=== PATIENT | female | born 1980 | race Two or more races ===

== ENCOUNTER 2019-02-01 08:00 | Outpatient (CLI) | payer OTHER ==
[2019-02-01 12:34] LABS: BASOPHILS # (AUTO) 0.1 10^3/uL (0.0-0.1); BASOPHILS % (AUTO) 0.8 %; EOSINOPHILS # (AUTO) 0.2 10^3/uL (0.0-0.7); EOSINOPHILS % (AUTO) 3.4 %; HGB - HEMOGLOBIN 12.6 g/dL (12.0-16.0); LYMPHOCYTES # (AUTO) 1.7 10^3/uL (1.5-3.5); LYMPHOCYTES % (AUTO) 27.9 %; MEAN CORPUSCULAR HEMOGLOBIN 29.4 pg (27.0-31.0); MEAN CORPUSCULAR HGB CONC 31.8 g/dL (32.0-36.0); MEAN CORPUSCULAR VOLUME 92.3 fL (81.0-99.0); MEAN PLATELET VOLUME 10.2 fL (7.9-10.8); MONOCYTES # (AUTO) 0.6 10^3/uL (0.0-1.0); MONOCYTES % (AUTO) 9.8 %; NEUTROPHILS # (AUTO) 3.6 10^3/uL (1.5-6.6); NEUTROPHILS % (AUTO) 57.8 %; PLT - PLATELET COUNT 260 10^3/uL (130-450); RED BLOOD COUNT 4.29 10^6/uL (4.20-5.40); RED CELL DISTRIBUTION WIDTH 12.7 % (12.0-15.0); WHITE BLOOD COUNT 6.1 x10^3/uL (4.8-10.8)
[2019-02-01 13:01] LABS: ALBUMIN 4.6 g/dL (3.2-5.5); ALBUMIN/GLOBULIN RATIO 1.5 (1.0-2.2); ALKALINE PHOSPHATASE 53 IU/L (42-121); ALT ALANINE AMINOTRANSFERASE 21 IU/L (10-60); AST ASPARTATE AMINOTRANSFERASE 22 IU/L (10-42); BILIRUBIN,TOTAL 0.6 mg/dL (0.2-1.0); BUN - BLOOD UREA NITROGEN 19 mg/dL (6-20); CALCIUM 9.2 mg/dL (8.5-10.3); CARBON DIOXIDE - CO2 29 mmol/L (21-32); CHLORIDE 101 mmol/L (101-111); CHOL/HDL RATIO 3.3 (<4.4); CHOLESTEROL 163 mg/dL; CREATININE 0.7 mg/dL (0.4-1.0); GFR - MDRD 93 (>89); GLUCOSE 88 mg/dL (70-100); HDL CHOLESTEROL 50 mg/dL; LDL CHOLESTEROL,CALCULATED 97 mg/dL; LDL/HDL RATIO 1.9 (<4.4); SODIUM 138 mmol/L (135-145); TOTAL PROTEIN 7.7 g/dL (6.7-8.2); VLDL CHOLESTEROL 16 mg/dL
== END 2019-02-01 23:59 | disposition home or self-care (01) ==
LOC: LAB.WCP 08:00
PROVIDERS: ATTEND Nurse Practitioner Family
DX: Z00.00 Encounter for general adult medical examination without abnormal findings (principal)
CPT/HCPCS: 36415; 80053; 80061; 83721; 84443; 85025

== ENCOUNTER 2019-02-02 14:22 | Outpatient (CLI) | payer OTHER ==
--- NOTE | 2019-02-03 14:58 | Mammography Report ---
Reason: ROUTINE MAMMO Procedure Date: 02/02/2019 Accession Number: [id number] / [id number] Procedure: TONIO - Screening Mammo w/Micky CPT Code: FULL RESULT: EXAM: Screening Mammo w/Micky DATE: 02/02/2019 2:59 PM CLINICAL HISTORY: Mother with breast cancer. Baseline screening. TECHNIQUE: (B) - Bilateral CC and MLO views were obtained. COMPARISON: None PARENCHYMAL PATTERN: (A) - The breasts demonstrate scattered fibroglandular densities bilaterally. FINDINGS: Right breast: There are no suspicious masses, calcifications, or areas of distortion. Left breast: There are 3 small subcentimeter nodules in the 12:00 position, one in the immediate retroareolar region, one 1.5 cm and the other 3.5 cm from the nipple. IMPRESSION: Incomplete examination. BI-RADS category 0. Needs additional evaluation left breast by ultrasound. Negative right breast. RECOMMENDATION: (ADDUS) - Targeted ultrasound recommended. Left breast BI-RADS CATEGORY: (0) - Incomplete Examination - need additional evaluation. STANDARD QUALIFYING STATEMENTS: 1. This examination was not reviewed with the aid of Computer-Aided Detection (CAD). 2. A negative or benign imaging report should not preclude biopsy if clinically suspicious findings are present. 3. Dense breasts may obscure an underlying neoplasm. 4. This examination was reviewed with the aid of 3D breast imaging (tomosynthesis).
== END 2019-02-02 14:23 | disposition home or self-care (01) ==
LOC: DI 14:22
DX: Z12.31 Encounter for screening mammogram for malignant neoplasm of breast (principal); Z80.3 Family history of malignant neoplasm of breast
CPT/HCPCS: 77063; 77067

== ENCOUNTER 2019-02-12 11:59 | Outpatient (CLI) | payer OTHER ==
--- NOTE | 2019-02-12 15:56 | Ultrasound Report ---
Reason: ABNORMAL MAMMOGRAM Procedure Date: 02/12/2019 Accession Number: [id number] / [id number] Procedure: US - Breast Unilateral Limited CPT Code: Final Report FULL RESULT: EXAM: Breast Unilateral Limited DATE: 02/12/2019 1:32 PM CLINICAL HISTORY: ABNORMAL MAMMOGRAM COMPARISON: 02/02/2019 TECHNIQUE: Targeted ultrasound was performed of the left breast in the area of mammographic concern at 12 o'clock and immediate retroareolar to 4 cm distance from the nipple. Color Doppler was employed as appropriate. FINDINGS: At the 12:00 position in the immediate retroareolar region and at 4 cm from the nipple are 3 mm in diameter avascular cysts accounting for 2 of the mammographically seen nodules. The third nodular density described on the prior mammogram report is not definitely appreciated on this study and may be solid.. IMPRESSION: Probable benign findings RECOMMENDATION: Recommend diagnostic left mammogram in 6 months. BIRADS CATEGORY 3: Probably benign RADIA
== END 2019-02-12 12:00 | disposition home or self-care (01) ==
LOC: DI 11:59
PROVIDERS: ATTEND Nurse Practitioner Family
DX: R92.8 Other abnormal and inconclusive findings on diagnostic imaging of breast (principal); N60.12 Diffuse cystic mastopathy of left breast
CPT/HCPCS: 76642

== ENCOUNTER 2019-09-29 09:38 | Outpatient (CLI) | payer OTHER ==
--- NOTE | 2019-09-30 08:13 | Mammography Report ---
UNILATERAL LEFT DIGITAL DIAGNOSTIC MAMMOGRAM 3D/2D: 09/29/2019 CLINICAL: Patient returns for a 6 month follow up of the left breast. Comparison is made to exam dated: 02/02/2019 mammogram - [facility]. The tissue o f left breast is heterogeneously dense. This may lower the sensitivity of mammography. There is a stable 0.3 cm round focal asymmetry in the left breast central to the nipple anterior dept h. There also is a stable 0.2 cm round focal asymmetry in the left breast at 1 o'clock anterior depth. Additionally, there is a stable 0.5 cm oval focal asymmetry in the left breast central to the nipple middle depth. No other significant masses or calcifications are seen in the breast. IMPRESSION: INCOMPLETE: NEEDS ADDITIONAL IMAGING EVALUATION The stable 0.3 cm round focal asymmetry in the left breast central to the nipple anterior depth is in determinate. The stable 0.2 cm round focal asymmetry in the left breast at 1 o'clock anterior depth is indetermina te. The stable 0.5 cm oval focal asymmetry in the left breast central to the nipple middle depth is indet erminate. A targeted ultrasound of the left breast is recommended and will be performed immediately following t his exam. This exam was interpreted at Station ID: [id number]. NOTE: For mammograms, a report in lay terms will be sent to the patient. Approximately 15% of breast malignancies will not be visualized mammographically. In the management of a palpable breast mass, a negative mammogram must not discourage biopsy of a clinically suspicious lesion. Electronically Signed By: Laura Aguirre M.D. lk/:09/29/2019 11:13:02 ACR BI-RADS Category 0: Incomplete 3340F PARENCHYMAL PATTERN: (D) - The breast(s) demonstrate(s) heterogeneously dense fibroglandular parlucyy ma. BI-RADS CATEGORY: (0) - 0 Ultrasound [id number] Immediate follow-up LATERALITY: (B)
== END 2019-09-29 09:39 | disposition home or self-care (01) ==
LOC: DI 09:38
PROVIDERS: ATTEND Nurse Practitioner Family
DX: R92.8 Other abnormal and inconclusive findings on diagnostic imaging of breast (principal)
CPT/HCPCS: 76642

== ENCOUNTER 2020-05-18 08:14 | Outpatient (CLI) | payer BC ==
--- NOTE | 2020-05-19 07:57 | Mammography Report ---
BILATERAL DIGITAL DIAGNOSTIC MAMMOGRAM 3D/2D: 05/18/2020 CLINICAL: 6 month follow-up of focal asymmetry on the left breast.Routine screening on the right [address]. Comparison is made to exams dated: 09/29/2019 mammogram and 02/02/2019 mammogram - [facility]. There are scattered fibroglandular elements in both breasts. There is a stable oval low density focal asymmetry with an indistinct and circumscribed margin in the left breast central to the nipple middle depth. There also is an oval low density focal asymmetry with an indistinct and circumscribed margin in the left breast at 5 o'clock middle depth. This is more prominent. Additionally, there is a stable benign oval low density cyst with an indistinct and circumscribed mar gin in the left breast at 1 o'clock anterior depth. This correlates with ultrasound findings. In addition, there is a stable oval low density focal asymmetry with an indistinct and circumscribed margin in the left breast at 12 o'clock in the retroareolar region. This correlates with ultrasound findings. No other significant masses, calcifications, or other findings are seen in either breast. IMPRESSION: INCOMPLETE: NEEDS ADDITIONAL IMAGING EVALUATION The stable oval low density focal asymmetry in the left breast central to the nipple middle depth is indeterminate. An ultrasound is recommended. The oval low density focal asymmetry in the left breast at 5 o'clock middle depth is indeterminate. An ultrasound is recommended. The stable oval low density focal asymmetry in the left breast at 12 o'clock in the retroareolar sahra on is consistent with a cyst and is benign. This exam was interpreted at Station ID: [id number]. NOTE: For mammograms, a report in lay terms will be sent to the patient. Approximately 15% of breast malignancies will not be visualized mammographically. In the management of a palpable breast mass, a negative mammogram must not discourage biopsy of a clinically suspicious lesion. Electronically Signed By: Harshad myrick/hermelinda:05/18/2020 09:11:45 ACR BI-RADS Category 0: Incomplete 3340F PARENCHYMAL PATTERN: (A) - The breast(s) demonstrate(s) scattered fibroglandular densities. BI-RADS CATEGORY: (0) - 0 Ultrasound [id number] Immediate follow-up LATERALITY: (B)
--- NOTE | 2020-05-19 07:57 | Ultrasound Report ---
LIMITED ULTRASOUND OF LEFT BREAST: 05/18/2020 CLINICAL: Patient returns today to evaluate a focal asymmetry in the left breast. Comparison is made to exams dated: 05/18/2020 mammogram, 09/29/2019 ultrasound, 09/29/2019 mammogram, ultrasound, and 02/02/2019 mammogram - [facility]. Color flow and real-time ultrasound of the left breast 4 o'clock, and retroareolar regions were perf ormed on the areas of interest. There is a 0.5 cm x 0.2 cm x 0.3 cm oval cyst in the left breast central to the nipple middle depth. This oval cyst is hypoechoic with internal echoes. This correlates with mammography findings. [place] r flow imaging demonstrates that there is no vascularity present. There also is a 0.5 cm x 0.2 cm x 0.3 cm oval cyst in the left breast at 4 o'clock middle depth. Thi s oval cyst is hypoechoic with a well-defined boundary and internal echoes. This correlates with vickey mography findings. Color flow imaging demonstrates that there is no vascularity present. IMPRESSION: PROBABLY BENIGN The 0.5 cm x 0.2 cm x 0.3 cm oval cyst in the left breast central to the nipple middle depth is consi stent with a complicated cyst and is probably benign. A follow-up ultrasound in 6 months is recommen ded. The 0.5 cm x 0.2 cm x 0.3 cm oval cyst in the left breast at 4 o'clock middle depth is consistent wit h a complicated cyst and is probably benign. A follow-up ultrasound in 6 months is recommended. A follow-up ultrasound in 6 months is recommended to demonstrate stability. This exam was interpreted at Station ID: [id number]. Electronically Signed By: Harshad Godoy M.D. ddp/:05/18/2020 10:10:48 Ultrasound BI-RADS: 3 Probably benign BI-RADS CATEGORY: (3) - 3 Ultrasound [id number] 6 month follow-up LATERALITY: (B)
== END 2020-05-18 08:15 | disposition home or self-care (01) ==
LOC: DI 08:14
PROVIDERS: ATTEND Nurse Practitioner Family
DX: N60.02 Solitary cyst of left breast (principal)

== ENCOUNTER 2021-03-12 10:43 | Outpatient (CLI) | payer BC ==
--- NOTE | 2021-03-13 08:19 | Ultrasound Report ---
LIMITED ULTRASOUND OF LEFT BREAST: 03/12/2021 CLINICAL: Patient returns for a 6 month follow up of the left breast. H/o left breast cyst(s). Comparison is made to exams dated: 03/12/2021 mammogram, 05/18/2020 ultrasound, 05/18/2020 mammogram, ultrasound, 09/29/2019 mammogram, and 02/12/2019 ultrasound - [facility]. Color flow and real-time ultrasound of the left breast 4 o'clock, and retroareolar regions were perf ormed on the areas of interest. Carver scale images of the real-time examination were reviewed. There is a 0.6 cm x 0.2 cm x 0.4 cm oval cyst in the left breast central to the nipple middle depth. This oval cyst is hypoechoic with a well-defined boundary and internal echoes. Color flow imaging d emonstrates that there is no vascularity present. This appears stable compared to prior studies dati ng back to 09/29/2019. There also is a stable benign 0.4 cm x 0.2 cm x 0.4 cm oval cyst in the left breast at 4 o'clock midd le depth 3 cm from the nipple. This oval cyst is anechoic with a well-defined boundary and posterior acoustic enhancement. This correlates with mammography findings. Color flow imaging demonstrates t hat there is no vascularity present. IMPRESSION: PROBABLY BENIGN The stable 0.6 cm x 0.2 cm x 0.4 cm oval cyst in the left breast central to the nipple middle depth i s consistent with a complicated cyst and is probably benign. The stable 0.4 cm x 0.2 cm x 0.4 cm oval cyst in the left breast at 4 o'clock middle depth is consist ent with a simple cyst and is benign. A follow-up mammogram and an ultrasound in 12 months are recommended to demonstrate 2 year stability. This exam was interpreted at Station ID: [id number]. Electronically Signed By: Harshad Godoy M.D. ddp/:03/12/2021 12:25:16 Ultrasound BI-RADS: 3 Probably benign BI-RADS CATEGORY: (3) - 3 Mammo and US [id number] 12 month follow-up LATERALITY: (B)
--- NOTE | 2021-03-13 08:19 | Mammography Report ---
BILATERAL DIGITAL DIAGNOSTIC MAMMOGRAM 3D/2D: 03/12/2021 CLINICAL: Patient returns for a 6 month follow up of the left breast, due for bilateral exam. Comparison is made to exams dated: 05/18/2020 ultrasound, 05/18/2020 mammogram, 09/29/2019 ultrasound, mammogram, 02/12/2019 ultrasound, and 02/02/2019 mammogram - [facility]. Th ere are scattered fibroglandular elements in both breasts. There is a stable oval low density focal asymmetry with an indistinct and circumscribed margin in the left breast central to the nipple middle depth. There also is a stable oval low density focal asymmetry with an indistinct and circumscribed margin i n the left breast at 4 o'clock anterior depth. Additionally, there is a stable oval low density focal asymmetry with an indistinct and circumscribed margin in the left breast at 12 o'clock anterior depth. This likely correlates with ultrasound find ing of a simple cyst. No other significant masses, calcifications, or other findings are seen in either breast. IMPRESSION: INCOMPLETE: NEEDS ADDITIONAL IMAGING EVALUATION The stable oval low density focal asymmetry in the left breast central to the nipple middle depth is indeterminate. An ultrasound is recommended. The stable oval low density focal asymmetry in the left breast at 4 o'clock anterior depth is indeter minate. An ultrasound is recommended. Ultrasound will be performed immediately following the current exam. This exam was interpreted at Station ID: [id number]. NOTE: For mammograms, a report in lay terms will be sent to the patient. Approximately 15% of breast malignancies will not be visualized mammographically. In the management of a palpable breast mass, a negative mammogram must not discourage biopsy of a clinically suspicious lesion. Electronically Signed By: Harshad Godoy M.D. ddp/:03/12/2021 11:52:39 ACR BI-RADS Category 0: Incomplete 3340F PARENCHYMAL PATTERN: (A) - The breast(s) demonstrate(s) scattered fibroglandular densities. BI-RADS CATEGORY: (0) - 0 Ultrasound [id number] Immediate follow-up LATERALITY: (B)
== END 2021-03-12 10:44 | disposition home or self-care (01) ==
LOC: DI 10:43
PROVIDERS: ATTEND Nurse Practitioner
DX: N60.02 Solitary cyst of left breast (principal)

== ENCOUNTER 2021-05-01 09:17 | Outpatient (CLI) | payer BC ==
[2021-05-01 12:38] LABS: BASOPHILS % (AUTO) 0.8 %; EOSINOPHILS # (AUTO) 0.1 10^3/uL (0.0-0.7); EOSINOPHILS % (AUTO) 2.1 %; HCT - HEMATOCRIT 40.8 % (37.0-47.0); HGB - HEMOGLOBIN 13.2 g/dL (12.0-16.0); LYMPHOCYTES # (AUTO) 1.2 10^3/uL (1.5-3.5); LYMPHOCYTES % (AUTO) 22.7 %; MEAN CORPUSCULAR HEMOGLOBIN 30.1 pg (27.0-31.0); MEAN CORPUSCULAR HGB CONC 32.4 g/dL (32.0-36.0); MEAN CORPUSCULAR VOLUME 92.9 fL (81.0-99.0); MEAN PLATELET VOLUME 11.2 fL (7.9-10.8); MONOCYTES # (AUTO) 0.8 10^3/uL (0.0-1.0); MONOCYTES % (AUTO) 15.6 %; NEUTROPHILS % (AUTO) 58.4 %; PLT - PLATELET COUNT 257 10^3/uL (130-450); RED BLOOD COUNT 4.39 10^6/uL (4.20-5.40); RED CELL DISTRIBUTION WIDTH 12.6 % (12.0-15.0); WHITE BLOOD COUNT 5.2 x10^3/uL (4.8-10.8)
[2021-05-01 13:35] LABS: ALBUMIN 4.4 g/dL (3.2-5.5); ALBUMIN/GLOBULIN RATIO 1.3 (1.0-2.2); ALKALINE PHOSPHATASE 58 IU/L (42-121); ALT ALANINE AMINOTRANSFERASE 21 IU/L (10-60); AST ASPARTATE AMINOTRANSFERASE 29 IU/L (10-42); BILIRUBIN,TOTAL 0.8 mg/dL (0.2-1.0); BUN - BLOOD UREA NITROGEN 17 mg/dL (6-20); CALCIUM 8.8 mg/dL (8.5-10.3); CARBON DIOXIDE - CO2 26 mmol/L (21-32); CHLORIDE 104 mmol/L (101-111); CHOL/HDL RATIO 3.3 (<4.4); CHOLESTEROL 160 mg/dL; CREATININE 0.6 mg/dL (0.4-1.0); GFR - MDRD 110 (>89); GLUCOSE 88 mg/dL (70-100); HDL CHOLESTEROL 49 mg/dL; LDL CHOLESTEROL,CALCULATED 95 mg/dL; LDL/HDL RATIO 1.9 (<4.4); SODIUM 138 mmol/L (135-145); TOTAL PROTEIN 7.9 g/dL (6.7-8.2); TRIGLYCERIDES 82 mg/dL; VLDL CHOLESTEROL 16 mg/dL
[2021-05-01 14:51] LABS: BILIRUBIN,URINE NEGATIVE (NEGATIVE); GLUCOSE, URINE (UA) NEGATIVE (NEGATIVE); KETONES,URINE (UA) NEGATIVE (NEGATIVE); LEUKOCYTE ESTERASE, URINE NEGATIVE (NEGATIVE); NITRITE,URINE NEGATIVE (NEGATIVE); OCCULT BLOOD,URINE NEGATIVE (NEGATIVE); PROTEIN,URINE NEGATIVE (NEGATIVE); UROBILINOGEN,URINE 0.2 (NORMAL) E.U./dL (NORMAL)
[2021-05-01 14:52] LABS: CLARITY,URINE CLEAR (CLEAR)
[2021-05-01 15:02] LABS: RBC,URINE None Seen /HPF (0-5); WBC,URINE 0-3 /HPF (0-5)
[2021-05-01 15:03] LABS: AMORPHOUS SEDIMENT,UR Few /LPF; BACTERIA,URINE Few /HPF (None Seen); SQUAMOUS EPITHELIAL CELL,UR FEW Squamous (<= Few)
== END 2021-05-01 09:18 | disposition home or self-care (01) ==
LOC: LAB.N 09:17
PROVIDERS: ATTEND Nurse Practitioner
DX: Z00.00 Encounter for general adult medical examination without abnormal findings (principal); Z13.220 Encounter for screening for lipoid disorders
CPT/HCPCS: 36415; 80053; 80061; 81001; 83721; 85025; 87086

== ENCOUNTER 2022-03-01 12:26 | Outpatient (CLI) | payer BC ==
--- NOTE | 2022-03-05 12:15 | Ultrasound Report ---
LIMITED ULTRASOUND OF LEFT BREAST: 03/01/2022 CLINICAL: Patient returns today to evaluate a focal asymmetry in the left breast. No prior exams were available for comparison. Color flow and real-time ultrasound of the left breast 4 o'clock, 12 o'clock, and retroareolar region s were performed. Carver scale images of the real-time examination were reviewed. Multiple cysts are seen in the left breast. Central to the nipple there is a cyst measuring 7 x 4 x 3 mm which has the appearance of a cluster of cysts, similar in size compared to prior ultrasound. In the 12:00 position 3 cm from the nipple there is a 3 x 4 x 2 mm simple cyst. In the 4:00 position 3 c m from the nipple there is a 4 x 3 x 2 mm simple cyst. IMPRESSION: BENIGN There is no sonographic evidence of malignancy. Return to screening mammogram. This exam was interpreted at Station ID: [id number]. Electronically Signed By: Ar Escamilla M.D. acr/:03/05/2022 08:05:20 Ultrasound BI-RADS: 2 Benign BI-RADS CATEGORY: (2) - 2 RECOMMENDATION: (ANNUAL) - Recommend routine annual screening mammography. [id number] return to screening LATERALITY: (B)
--- NOTE | 2022-03-05 13:22 | Mammography Report ---
BILATERAL DIGITAL DIAGNOSTIC MAMMOGRAM 3D/2D: 03/01/2022 CLINICAL: 12 month follow up of the left breast, due for bilateral imaging. Comparison is made to exams dated: 03/12/2021 mammogram, 05/18/2020 mammogram, 09/29/2019 mammogram, an d 02/02/2019 mammogram - [facility]. There are scattered areas of fibroglandular density in both breasts (category b / 25%-50% glandular t issue). There is a stable oval low density focal asymmetry with an indistinct and circumscribed margin in the left breast central to the nipple middle depth. There also is a stable oval low density focal asymmetry with an indistinct and circumscribed margin i n the left breast at 4 o'clock anterior depth. Additionally, there is a stable benign oval low density focal asymmetry with an indistinct and circum scribed margin in the left breast at 12 o'clock anterior depth. No other significant masses, calcifications, or other findings are seen in either breast. IMPRESSION: INCOMPLETE: NEEDS ADDITIONAL IMAGING EVALUATION The stable oval low density focal asymmetry in the left breast central to the nipple middle depth is indeterminate. An ultrasound is recommended. The stable oval low density focal asymmetry in the left breast at 4 o'clock anterior depth is indeter minate. An ultrasound is recommended. US will be performed and dictated separately. Based on Tyrer-Cuzick model (a risk assessment model), the patient's lifetime risk is 20.3% and her 1 0 year risk is 3.4%. If a patient has an elevated risk, a more comprehensive evaluation should be con sidered and/or a referral to a genetic counselor. The [employer] [employer], [employer], and NCCN Guidelines advise the consideration of Breast MRI as an adjunct to screening mammog lencho in patients whose "Lifetime risk to develop breast cancer" is 20% or higher. This exam was interpreted at Station ID: [id number]. NOTE: For mammograms, a report in lay terms will be sent to the patient. Approximately 15% of breast malignancies will not be visualized mammographically. In the management of a palpable breast mass, a negative mammogram must not discourage biopsy of a clinically suspicious lesion. Electronically Signed By: Ar Escamilla M.D. acr/:03/01/2022 13:11:14 ACR BI-RADS Category 0: Incomplete 3340F PARENCHYMAL PATTERN: (A) - The breast(s) demonstrate(s) scattered fibroglandular densities. BI-RADS CATEGORY: (0) - 0 Ultrasound [id number] Immediate follow-up LATERALITY: (L)
== END 2022-03-01 12:27 | disposition home or self-care (01) ==
LOC: DI 12:26
PROVIDERS: ATTEND Nurse Practitioner
DX: N63.20 Unspecified lump in the left breast, unspecified quadrant (principal)